=== PATIENT | male | born 1995 | race Caucasian/White ===

== ENCOUNTER 2018-03-14 02:24 | Inpatient (IN) | payer MEDICAID, OTHER ==
[~2018-03-14] VITALS: Ht 177.8 cm; Wt 53.5 kg
[~2018-03-14 02:24] MED LIST: OLAN10TA6 PO
[2018-03-14] MEDS ORDERED: LORazepam 2 MG/ML VIAL IM ONE (05:15)
[2018-03-14] MEDS ORDERED: DiphenhydrAMINE HCL 50 MG/ML VIAL IM ONE (05:15)
[2018-03-14] MEDS ORDERED: HALOPERIDOL LACTATE 5 MG/ML VIAL IM ONE (05:15)
[2018-03-14 06:39] LABS: BASOPHILS % (AUTO) 0.3 % (0.0-2.0); EOSINOPHILS % (AUTO) 0.4 % (1.0-6.0); HEMATOCRIT 45.4 % (41-53); HEMOGLOBIN 16.1 g/dL (13.5-17.5); LYMPHOCYTES # (AUTO) 1.5 K/uL (1.0-4.8); LYMPHOCYTES % (AUTO) 16.3 % (22.0-44.0); MEAN CORPUSCULAR HEMOGLOBIN 32.9 pg (26.0-34.0); MEAN CORPUSCULAR HGB CONC 35.5 G/dL (31.0-37.0); MEAN CORPUSCULAR VOLUME 93 fL (80-100); MONOCYTES # (AUTO) 0.5 K/uL (0.1-1.0); MONOCYTES % (AUTO) 5.6 % (2.0-9.0); NEUTROPHILS # (AUTO) 7.2 K/uL (1.8-7.7); NEUTROPHILS % (AUTO) 77.4 % (40.0-70.0); PLATELET COUNT (AUTO) 222 K/uL (150-450)
[2018-03-14 06:52] LABS: ANION GAP 8 mmol/L (8-16); CALCIUM, TOTAL 9.7 mg/dL (8.8-10.5); CARBON DIOXIDE 30 mmol/L (22-29); CHLORIDE 102 mmol/L (98-107); CREATININE 0.72 mg/dL (0.60-1.30); GLOMERULAR FILTR. RATE CALC > 60 mL/min (>60); GLUCOSE,RANDOM 102 mg/dL (70-110); POTASSIUM 3.7 mmol/L (3.5-5.1); SODIUM SERUM 140 mmol/L (136-145); UREA NITROGEN, BLOOD 11 mg/dL (7-18)
[2018-03-14 07:02] LABS: ALANINE AMINOTRANSFERASE 54 U/L (12-78); ALBUMIN 4.8 g/dL (3.4-5.0); ALKALINE PHOSPHATASE 88 U/L (46-116); ASPARTATE AMINOTRANSFERASE 34 U/L (15-37); BILIRUBIN,TOTAL 0.6 mg/dL (0.1-1.0); TOTAL PROTEIN, SERUM 8.9 g/dL (6.4-8.2)
[2018-03-14 07:09] LABS: AMPHET/METH SCREEN,URINE NEGATIVE (NEGATIVE); BARBITURATE SCREEN, URINE NEGATIVE (NEGATIVE); BENZODIAZEPINES SCREEN,URINE NEGATIVE (NEGATIVE); CANNABINOID SCREEN,URINE POSITIVE (NEGATIVE); COCAINE SCREEN,URINE NEGATIVE (NEGATIVE); METHADONE SCREEN, URINE NEGATIVE (NEGATIVE); OPIATE SCREEN,URINE NEGATIVE (NEGATIVE)
[2018-03-14 07:11] LABS: PHENCYCLIDINE SCREEN,URINE NEGATIVE (NEGATIVE)
[2018-03-14] MEDS ORDERED: IBUPROFEN 400 MG TABLET PO PRN ×2 (09:45→17:00)
[2018-03-14] MEDS ORDERED: ACETAMINOPHEN 325 MG TABLET PO PRN ×2 (09:45→17:00)
[2018-03-14 16:06] VITALS: BP 139/79
[2018-03-14] MEDS ORDERED: NICOTINE 14 MG/24 HOUR PATCH TD PRN (17:00)
[2018-03-14] MEDS ORDERED: GuaiFENesin/D-METHORPHAN [SUGAR-FREE] 200-20MG/10 ML SYRUP UDCUP PO PRN (17:00)
[2018-03-14] MEDS ORDERED: CloNIDine HCL 0.1 MG TABLET PO PRN (17:00)
[2018-03-14] MEDS ORDERED: ALBUTEROL SULFATE HFA 90 MCG/PUFF 8 GM INHALER IH PRN (17:00)
[2018-03-14] MEDS ORDERED: LOPERAMIDE HCL 2 MG CAPSULE PO PRN (17:00)
[2018-03-14] MEDS ORDERED: DOCUSATE SODIUM 100 MG CAPSULE PO PRN (17:00)
[2018-03-14] MEDS ORDERED: MAGNESIUM HYDROXIDE SUSPENSION 30 ML UDCUP PO PRN (17:00)
[2018-03-14] MEDS ORDERED: PETROLATUM,WHITE 71 GM JELLY TP PRN (17:00)
[2018-03-14] MEDS ORDERED: ONDANSETRON HCL 4 MG TABLET PO PRN (17:00)
[2018-03-14] MEDS ORDERED: MAG HYDROX/AL HYDROX/SIMETH ES 30 ML SUSPENSION UDCUP PO PRN (17:00)
[2018-03-15] MEDS: LORazepam 2 MG TABLET PO PRN ×4 (00:27→16:37)
[2018-03-15] MEDS: ZOLPIDEM TARTRATE 10 MG TABLET PO PRN ×2 (00:27→20:09)
[2018-03-15 00:32] VITALS: BP 122/73
[2018-03-15 07:57] LABS: BASOPHILS % (AUTO) 0.6 % (0.0-2.0); EOSINOPHILS % (AUTO) 0.7 % (1.0-6.0); HEMATOCRIT 41.9 % (41-53); HEMOGLOBIN 15.1 g/dL (13.5-17.5); LYMPHOCYTES # (AUTO) 1.8 K/uL (1.0-4.8); LYMPHOCYTES % (AUTO) 24.1 % (22.0-44.0); MEAN CORPUSCULAR HGB CONC 36.1 G/dL (31.0-37.0); MEAN CORPUSCULAR VOLUME 91 fL (80-100); MONOCYTES # (AUTO) 0.5 K/uL (0.1-1.0); MONOCYTES % (AUTO) 6.1 % (2.0-9.0); NEUTROPHILS # (AUTO) 5.1 K/uL (1.8-7.7); NEUTROPHILS % (AUTO) 68.5 % (40.0-70.0); PLATELET COUNT (AUTO) 211 K/uL (150-450); RED BLOOD CELL COUNT(AUTO) 4.59 MIL/uL (4.50-5.90); RED CELL DISTRIBUTION WIDTH 13.2 % (11.5-14.5)
[2018-03-15 08:02] VITALS: BP 139/90
[2018-03-15 08:27] LABS: ALANINE AMINOTRANSFERASE 58 U/L (12-78); ALBUMIN 4.5 g/dL (3.4-5.0); ALKALINE PHOSPHATASE 70 U/L (46-116); ANION GAP 8 mmol/L (8-16); ASPARTATE AMINOTRANSFERASE 65 U/L (15-37); BILIRUBIN,TOTAL 0.8 mg/dL (0.1-1.0); CALCIUM, TOTAL 9.1 mg/dL (8.8-10.5); CARBON DIOXIDE 30 mmol/L (22-29); CHLORIDE 100 mmol/L (98-107); CHOL/HDL RATIO 3.2 (4.2-7.3); CHOLESTEROL 152 mg/dL (131-200); CREATININE 0.65 mg/dL (0.60-1.30); GLOMERULAR FILTR. RATE CALC > 60 mL/min (>60); GLUCOSE,RANDOM 104 mg/dL (70-110); HDL CHOLESTEROL 47 mg/dL (40-60); LDL CHOL (CALC.) 98 mg/dL (0-130); POTASSIUM 3.6 mmol/L (3.5-5.1); SODIUM SERUM 138 mmol/L (136-145); THYROID STIMULATING HORMONE 2.23 uIU/mL (0.36-3.74); TOTAL PROTEIN, SERUM 7.8 g/dL (6.4-8.2); TRIGLYCERIDES 37 mg/dL (15-150); UREA NITROGEN, BLOOD 12 mg/dL (7-18)
[2018-03-15] MEDS: HALOPERIDOL 5 MG TABLET PO PRN ×2 (09:26→16:37)
[2018-03-15] MEDS: OLANZapine 10 MG RAPDIS TABLET PO SCH ×2 (10:15→20:09)
[2018-03-15 16:00] VITALS: BP 132/85
[2018-03-16 00:05] VITALS: BP 130/78
[2018-03-16] MEDS: LORazepam 2 MG TABLET PO PRN ×3 (04:23→16:07)
[2018-03-16 08:07] VITALS: BP 138/90
[2018-03-16] MEDS: OLANZapine 10 MG RAPDIS TABLET PO SCH ×2 (08:35→20:18)
[2018-03-16] MEDS: HALOPERIDOL 5 MG TABLET PO PRN (08:36)
[2018-03-16 16:58] VITALS: BP 135/82
[2018-03-16] MEDS: ZOLPIDEM TARTRATE 10 MG TABLET PO PRN (20:49)
[2018-03-17 00:05] VITALS: BP 129/78
[2018-03-17] MEDS: HALOPERIDOL 5 MG TABLET PO PRN (00:12)
[2018-03-17] MEDS: LORazepam 2 MG TABLET PO PRN ×4 (00:12→20:28)
[2018-03-17] MEDS: OLANZapine 10 MG RAPDIS TABLET PO SCH ×2 (09:32→20:28)
[2018-03-17 09:33] VITALS: BP 137/87
[2018-03-17 16:21] VITALS: BP 138/86
[2018-03-18 01:59] VITALS: BP 127/81
[2018-03-18] MEDS: LORazepam 2 MG TABLET PO PRN ×4 (03:04→13:57)
[2018-03-18 08:07] VITALS: BP 128/76
[2018-03-18] MEDS: HALOPERIDOL 5 MG TABLET PO PRN ×2 (09:04→14:35)
[2018-03-18] MEDS: OLANZapine 10 MG RAPDIS TABLET PO SCH ×2 (09:04→20:17)
[2018-03-18 16:28] VITALS: BP 117/65
[2018-03-18] MEDS: ZOLPIDEM TARTRATE 10 MG TABLET PO PRN (20:18)
[2018-03-19] MEDS: HALOPERIDOL 5 MG TABLET PO PRN ×2 (00:08→16:38)
[2018-03-19] MEDS: LORazepam 2 MG TABLET PO PRN ×4 (00:08→16:38)
[2018-03-19 00:09] VITALS: BP 123/75
[2018-03-19 08:06] VITALS: BP 117/65
[2018-03-19] MEDS: OLANZapine 10 MG RAPDIS TABLET PO SCH ×2 (08:51→20:23)
[2018-03-19 16:38] VITALS: BP 121/79
[2018-03-19] MEDS: ZOLPIDEM TARTRATE 10 MG TABLET PO PRN (20:23)
[2018-03-20 00:05] VITALS: BP 132/82
[2018-03-20] MEDS: LORazepam 2 MG TABLET PO PRN ×3 (00:06→12:49)
[2018-03-20] MEDS: OLANZapine 10 MG RAPDIS TABLET PO SCH ×2 (08:03→20:22)
[2018-03-20 09:33] VITALS: BP 131/75
[2018-03-20 16:29] VITALS: BP 122/74
[2018-03-20] MEDS: ZOLPIDEM TARTRATE 10 MG TABLET PO PRN (20:22)
[2018-03-21 00:03] VITALS: BP 125/79
[2018-03-21] MEDS: LORazepam 2 MG TABLET PO PRN ×2 (00:04→04:10)
[2018-03-21 08:19] VITALS: BP 107/64
[2018-03-21] MEDS ORDERED: OLAN10TA22 PO (09:20)
[2018-03-21] MEDS: OLANZapine 10 MG RAPDIS TABLET PO SCH (10:44)
== END 2018-03-21 13:10 | disposition home or self-care (01) | DRG 750 ==
LOC: EMS 02:25 → AHU 14:30 → B3A 15:14
DX: F20.0 Paranoid schizophrenia (principal); R74.0 Nonspecific elevation of levels of transaminase and lactic acid dehydrogenase [LDH]; F12.10 Cannabis abuse, uncomplicated; F31.9 Bipolar disorder, unspecified; F90.9 Attention-deficit hyperactivity disorder, unspecified type; Z79.899 Other long term (current) drug therapy; Z71.51 Drug abuse counseling and surveillance of drug abuser; Z91.19 Patient's noncompliance with other medical treatment and regimen; Z88.1 Allergy status to other antibiotic agents; Z28.21 Immunization not carried out because of patient refusal
CPT/HCPCS: 83036; 84443; 87081; 90686; G0480; J1200; J1630; J2060